=== PATIENT | male | born 1955 | race Hispanic/Latino ===

== ENCOUNTER → 2023-10-22 | Outpatient (CLI) | payer OTHER, MEDICARE ==
[~2023-10-22] MED LIST: IOHEXOL 350 MG/ML 100ML INFUS..BTL IV ONE
== END | disposition home or self-care (01) ==
LOC: RAH 10:31
PROVIDERS: ATTEND Student in an Organized Health Care Education/Training Program
DX: I25.10 Atherosclerotic heart disease of native coronary artery without angina pectoris (principal); R07.9 Chest pain, unspecified
CPT/HCPCS: 75574; Q9967

== ENCOUNTER 2023-11-29 05:33 | Day surgery (SDC) | payer OTHER, MEDICARE ==
[2023-11-25 08:35] LABS: BASOPHILS % (AUTO) 0.8 % (0.0-5.0); EOSINOPHILS # (AUTO) 0.16 K/uL (0.00-0.70); EOSINOPHILS % (AUTO) 1.3 % (0.0-8.0); HEMATOCRIT 47.1 % (42-54); IMMATURE GRANULOCYTE ABSOLUTE 0.05 K/uL (0-1); LYMPHOCYTES # (AUTO) 3.6 K/uL (1.0-4.8); LYMPHOCYTES % (AUTO) 29.1 % (21.0-51.0); MEAN CORPUSCULAR HEMOGLOBIN 28.6 pg (27.0-33.0); MEAN CORPUSCULAR HGB CONC 32.3 g/dL (32.0-36.0); MEAN CORPUSCULAR VOLUME 88.5 fL (79-99); MONOCYTES # (AUTO) 0.7 K/uL (0.1-1.0); MONOCYTES % (AUTO) 5.6 % (3.0-13.0); NEUTROPHILS # (AUTO) 7.8 K/uL (1.8-7.7); NEUTROPHILS % (AUTO) 62.8 % (40.0-77.0); PLATELET COUNT (AUTO) 242 K/uL (130-400); RED BLOOD CELL COUNT(AUTO) 5.32 MIL/uL (4.50-6.20); RED CELL DISTRIBUTION WIDTH 13.7 % (11.0-15.5); WHITE BLOOD COUNT (AUTO) 12.4 K/uL (4.8-10.8)
[2023-11-25 08:45] LABS: CREATININE 0.9 mg/dL (0.5-1.5); POTASSIUM 4.7 mmol/L (3.5-5.1)
[2023-11-25 08:47] LABS: INR 0.94 (0.85-1.15)
[2023-11-25 08:48] LABS: PARTIAL THROMBOPLASTIN TIME 27.6 SEC (26.3-35.5)
[2023-11-25 09:02] LABS: ADD UA MICROSCOPIC YES; APPEARANCE,URINE CLEAR (CLEAR); BILIRUBIN,URINE NEGATIVE (NEGATIVE); COLOR,URINE LIGHT-YELLOW (YELLOW); GLUCOSE, URINE (UA) >=1000 mg/dL (NEGATIVE); KETONES,URINE NEGATIVE (NEGATIVE); LEUKOCYTE ESTERASE ,URINE NEGATIVE Leu/uL (NEGATIVE); NITRATE,URINE NEGATIVE (NEGATIVE); OCCULT BLOOD,URINE NEGATIVE (NEGATIVE); PH,URINE 5.5 (5.0-8.0); PROTEIN,URINE NEGATIVE (NEGATIVE); UROBILINOGEN,URINE 0.2 mg/dL (0.2-1.0)
[2023-11-25 09:05] LABS: MUCUS,URINE RARE LPF (None Seen); RBC,URINE 0-1 /HPF (0-1); SQUAMOUS EPITHELIAL CELL,UR RARE /HPF (0-2); WBC,URINE 0-1 /HPF (0-1)
[2023-11-25 09:10] VITALS: BP 132/67; PULSE 59; RESP 18
[2023-11-25 09:13] LABS: B-TYPE NATRIURETIC PEPTIDE 57 pg/mL (0-100)
[~2023-11-29] VITALS: Ht 180.3 cm; Wt 116.5 kg
[2023-11-29] VITALS (13 sets, daily range): BP systolic 115–137; BP diastolic 56–71; PULSE 52–59; RESP 12–20
[~2023-11-29 05:33] MED LIST changes: +AEC81 PO; +AMLO-258 PO; +ATOR10 PO; +EMPA10TA PO; +INSU300I SQ; -IOHEXOL 350 MG/ML 100ML INFUS..BTL IV ONE; +VALS160T29 PO
[2023-11-29] MEDS: 0.9%NACL 1000ML 1,000 ML IV ONE (06:37)
[2023-11-29] MEDS ORDERED: FENTANYL CITRATE PF 50 MCG/1 ML 2ML VIAL ONE (07:12)
[2023-11-29] MEDS ORDERED: LIDOCAINE HCL 400MG/20ML VIAL ONE (07:12)
[2023-11-29] MEDS ORDERED: VERAPAMIL HCL 2.5 MG/ML VIAL ONE (07:13)
[2023-11-29] MEDS ORDERED: HEPARIN 10,000 UNIT/10ML (1,000 UNIT/ML) VIAL ONE (07:13)
[2023-11-29] MEDS ORDERED: IOHEXOL-350 50ML VIAL IV ONE (07:13)
[2023-11-29] MEDS ORDERED: IOHEXOL 350 MG/ML 100ML INFUS..BTL IV ONE (07:13)
[2023-11-29] MEDS ORDERED: MIDAZOLAM HCL 1 MG/ML 2ML VIAL ONE (07:13)
[2023-11-29] MEDS ORDERED: NITROGLYCERIN 50MG VIAL ONE (07:13)
[2023-11-29] MEDS: 0.9%NACL 1000ML 1,000 ML IV SCH (08:20)
[2023-11-29] MEDS ORDERED: GLUCAGON 1MG KIT 1 MG ML IM PRN (08:30)
[2023-11-29] MEDS ORDERED: DEXTROSE 50%-WATER 50 ML DISP.SYRIN IV PRN (08:30)
== END 2023-11-29 12:37 | disposition home or self-care (01) ==
LOC: DAH 05:33
PROVIDERS: ATTEND Student in an Organized Health Care Education/Training Program
DX: I25.119 Atherosclerotic heart disease of native coronary artery with unspecified angina pectoris (principal); I44.0 Atrioventricular block, first degree; I10 Essential (primary) hypertension; E78.5 Hyperlipidemia, unspecified; E11.9 Type 2 diabetes mellitus without complications; F17.200 Nicotine dependence, unspecified, uncomplicated; Z79.01 Long term (current) use of anticoagulants; Z79.899 Other long term (current) drug therapy; Z98.890 Other specified postprocedural states; Z79.82 Long term (current) use of aspirin
CPT/HCPCS: 80048; 83880; 85025; 85610; 85730; 81001; 36415; 71045; 93005; 93458; 82948 ×2; C1769; C1894; A4649; J3010; J3490 ×3; J7030; J1644 ×2; J2250; Q9967; A4215; A6251; A4222; A6260; A4221; A4663; A4216; A6206; A4606; Q9965; A4223 ×3; 96360; 96361; 99156; 99157

== ENCOUNTER 2024-06-23 05:35 | Day surgery (SDC) | payer OTHER, MEDICARE ==
[2024-06-21 09:34] VITALS: BP 117/65; PULSE 50; RESP 16; TEMP 97.5
[2024-06-21 09:40] LABS: BASOPHILS # (AUTO) 0.06 K/uL (0.00-0.20); BASOPHILS % (AUTO) 0.5 % (0.0-5.0); EOSINOPHILS # (AUTO) 0.21 K/uL (0.00-0.70); EOSINOPHILS % (AUTO) 1.9 % (0.0-8.0); HEMATOCRIT 46.7 % (42-54); IMMATURE GRANULOCYTE ABSOLUTE 0.07 K/uL (0-1); LYMPHOCYTES # (AUTO) 3.8 K/uL (1.0-4.8); LYMPHOCYTES % (AUTO) 34.2 % (21.0-51.0); MEAN CORPUSCULAR HEMOGLOBIN 28.2 pg (27.0-33.0); MEAN CORPUSCULAR HGB CONC 32.3 g/dL (32.0-36.0); MEAN CORPUSCULAR VOLUME 87.1 fL (79-99); MONOCYTES # (AUTO) 0.7 K/uL (0.1-1.0); MONOCYTES % (AUTO) 6.2 % (3.0-13.0); NEUTROPHILS # (AUTO) 6.3 K/uL (1.8-7.7); NEUTROPHILS % (AUTO) 56.6 % (40.0-77.0); PLATELET COUNT (AUTO) 293 K/uL (130-400); RED BLOOD CELL COUNT(AUTO) 5.36 MIL/uL (4.50-6.20); RED CELL DISTRIBUTION WIDTH 13.6 % (11.0-15.5); WHITE BLOOD COUNT (AUTO) 11.2 K/uL (4.8-10.8)
[2024-06-21 09:49] LABS: POTASSIUM 4.3 mmol/L (3.5-5.1)
[~2024-06-23] VITALS: Ht 177.8 cm; Wt 118.8 kg
[~2024-06-23 05:35] MED LIST changes: +APIX5TAB PO; -EMPA10TA PO; +EMPA25TA PO; +LEVO5TAB13 PO
[2024-06-23 06:03] LABS: BASOPHILS # (AUTO) 0.06 K/uL (0.00-0.20); BASOPHILS % (AUTO) 0.6 % (0.0-5.0); EOSINOPHILS % (AUTO) 3.1 % (0.0-8.0); HEMATOCRIT 40.9 % (42-54); IMMATURE GRANULOCYTE ABSOLUTE 0.04 K/uL (0-1); LYMPHOCYTES # (AUTO) 3.9 K/uL (1.0-4.8); LYMPHOCYTES % (AUTO) 39.8 % (21.0-51.0); MEAN CORPUSCULAR VOLUME 87.8 fL (79-99); MONOCYTES # (AUTO) 0.5 K/uL (0.1-1.0); MONOCYTES % (AUTO) 5.3 % (3.0-13.0); NEUTROPHILS % (AUTO) 50.8 % (40.0-77.0); PLATELET COUNT (AUTO) 239 K/uL (130-400); RED BLOOD CELL COUNT(AUTO) 4.66 MIL/uL (4.50-6.20); RED CELL DISTRIBUTION WIDTH 13.8 % (11.0-15.5); WHITE BLOOD COUNT (AUTO) 9.8 K/uL (4.8-10.8)
[2024-06-23 06:30] VITALS: BP 161/80; PULSE 57; RESP 17; TEMP 97.5
[2024-06-23] MEDS: 0.9%NACL 1000ML 1,000 ML IV ONE (07:45)
[2024-06-23] MEDS ORDERED: HEParin-NS 1,000 UNIT/500 ML 500 ML IV ONE (10:00)
[2024-06-23] MEDS ORDERED: LIDOCAINE HCL 400MG/20ML VIAL ONE (10:00)
[2024-06-23] MEDS ORDERED: BUPIvacaine/PF 0.25% 30ML VIAL IJ ONE (10:16)
[2024-06-23 11:05] VITALS: BP 142/69; PULSE 49; RESP 14; TEMP 98
[2024-06-23 11:20] VITALS: BP 142/69; PULSE 49; RESP 15
[2024-06-23 11:35] VITALS: BP 140/71; PULSE 58; RESP 16
== END 2024-06-23 11:40 | disposition home or self-care (01) ==
LOC: DAH 05:35
PROVIDERS: ATTEND Internal Medicine Cardiovascular Disease
DX: I48.0 Paroxysmal atrial fibrillation (principal); I25.10 Atherosclerotic heart disease of native coronary artery without angina pectoris; G47.33 Obstructive sleep apnea (adult) (pediatric); I10 Essential (primary) hypertension; E78.5 Hyperlipidemia, unspecified; E11.9 Type 2 diabetes mellitus without complications; Z79.01 Long term (current) use of anticoagulants; Z99.89 Dependence on other enabling machines and devices; Z79.899 Other long term (current) drug therapy; Z98.49 Cataract extraction status, unspecified eye
CPT/HCPCS: 80048; 85025 ×2; 36415 ×2; 33285; 82948; A4649; C1764; J3490; J7030; J0665; J1644; A4215; A4222; A4663; A4216; A4606; A4223 ×3; A4221

== ENCOUNTER 2024-11-13 05:44 | Day surgery (SDC) | payer OTHER, MEDICARE ==
[2024-11-10 14:58] LABS: BASOPHILS # (AUTO) 0.09 K/uL (0.00-0.20); BASOPHILS % (AUTO) 0.7 % (0.0-5.0); EOSINOPHILS # (AUTO) 0.54 K/uL (0.00-0.70); EOSINOPHILS % (AUTO) 4.5 % (0.0-8.0); HEMATOCRIT 46.4 % (42-54); IMMATURE GRANULOCYTE ABSOLUTE 0.05 K/uL (0-1); LYMPHOCYTES # (AUTO) 3.4 K/uL (1.0-4.8); LYMPHOCYTES % (AUTO) 28.1 % (21.0-51.0); MEAN CORPUSCULAR HEMOGLOBIN 28.7 pg (27.0-33.0); MEAN CORPUSCULAR HGB CONC 32.1 g/dL (32.0-36.0); MEAN CORPUSCULAR VOLUME 89.4 fL (79-99); MONOCYTES # (AUTO) 0.5 K/uL (0.1-1.0); MONOCYTES % (AUTO) 4.3 % (3.0-13.0); NEUTROPHILS # (AUTO) 7.4 K/uL (1.8-7.7); PLATELET COUNT (AUTO) 229 K/uL (130-400); RED BLOOD CELL COUNT(AUTO) 5.19 MIL/uL (4.50-6.20); RED CELL DISTRIBUTION WIDTH 13.8 % (11.0-15.5)
[2024-11-10 15:10] VITALS: BP 150/70; PULSE 50; RESP 20; TEMP 98
[2024-11-10 15:16] LABS: INR 1.03 (0.85-1.15); PROTHROMBIN TIME 10.9 SEC (9.6-11.6)
[2024-11-10 15:18] LABS: PARTIAL THROMBOPLASTIN TIME 27.6 SEC (26.3-35.5)
[2024-11-10 15:30] LABS: CREATININE 1.1 mg/dL (0.5-1.3); POTASSIUM 5.1 mmol/L (3.5-5.1)
--- NOTE | 2024-11-10 16:30 | NUR ---
REPORT REPORTED CBC AND BMP TO CHAITANYA SULLIVAN NP. RECEIVED ORDERS TO REPEAT BMP AND CBC AM OF PROCEDURE
--- NOTE | 2024-11-11 07:25 | EKG ---
[facility] Test Date: 2024-11-10 Test Time: 15:39:06 Pat Name: SUZI FRIAS Department: [facility] Room: [facility] Gender: M [employer] Tender: [id number] : 1955 Requested By: JAY ROB Order Number: [id number] Reading MD: Jean Marie Durham Measurements Intervals [place] Rate: 53 P: -74 ID: [id number] QRS: -10 QRSD: 107 T: 64 QT: 442 QTc: 414 Interpretive Statements Sinus or ectopic atrial rhythm Atrial premature complexes Sinus pause Compared to ECG 11/25/2023 08:25:02 Atrial premature complex(es) now present Sinus pause or arrest now present Ventricular premature complex(es) no longer present First degree AV block no longer present Intraventricular conduction delay no longer present Electronically Signed On 11-13-2024 16:00:27 RADIUS GRINDER by Jean Marie Durham Please click the below link to view image of tracing.
[~2024-11-13] VITALS: Ht 180.3 cm; Wt 119.7 kg
[2024-11-13] VITALS (7 sets, daily range): BP systolic 130–160; BP diastolic 60–86; PULSE 50–74; RESP 12–14; TEMP 98.4
[2024-11-13 07:02] LABS: BASOPHILS # (AUTO) 0.09 K/uL (0.00-0.20); BASOPHILS % (AUTO) 0.8 % (0.0-5.0); EOSINOPHILS # (AUTO) 0.51 K/uL (0.00-0.70); EOSINOPHILS % (AUTO) 4.8 % (0.0-8.0); HEMATOCRIT 46.3 % (42-54); IMMATURE GRANULOCYTE ABSOLUTE 0.09 K/uL (0-1); LYMPHOCYTES # (AUTO) 3.5 K/uL (1.0-4.8); LYMPHOCYTES % (AUTO) 32.6 % (21.0-51.0); MEAN CORPUSCULAR VOLUME 87.5 fL (79-99); MONOCYTES # (AUTO) 0.6 K/uL (0.1-1.0); MONOCYTES % (AUTO) 5.8 % (3.0-13.0); NEUTROPHILS # (AUTO) 5.9 K/uL (1.8-7.7); NEUTROPHILS % (AUTO) 55.2 % (40.0-77.0); PLATELET COUNT (AUTO) 254 K/uL (130-400); RED BLOOD CELL COUNT(AUTO) 5.29 MIL/uL (4.50-6.20); RED CELL DISTRIBUTION WIDTH 14.1 % (11.0-15.5); WHITE BLOOD COUNT (AUTO) 10.7 K/uL (4.8-10.8)
[2024-11-13 07:17] LABS: CREATININE 0.8 mg/dL (0.5-1.3); POTASSIUM 4.6 mmol/L (3.5-5.1)
[2024-11-13] MEDS: 0.9%NACL 1000ML 1,000 ML IV SCH (07:23)
[2024-11-13] MEDS ORDERED: BUPIvacaine/PF 0.25% 30ML VIAL IJ ONE (07:36)
[2024-11-13] MEDS ORDERED: ceFAZolin SODIUM 1 GM VIAL ONE (07:36)
[2024-11-13] MEDS ORDERED: LIDOCAINE HCL 1% MDV 50ML VIAL ONE (07:36)
[2024-11-13] MEDS ORDERED: MEPERIDINE-PF 50 MG/ML SYG ONE (07:38)
[2024-11-13] MEDS ORDERED: MIDAZOLAM HCL 1 MG/ML 2ML VIAL ONE (07:38)
[2024-11-13] MEDS ORDERED: IOHEXOL-350 50ML VIAL IV ONE (08:01)
[2024-11-13] MEDS ORDERED: TRAM50TA4 PO (09:18)
[2024-11-13] MEDS ORDERED: acetaMINOPHEN 500 MG TABLET PO PRN (09:30)
[2024-11-13] MEDS ORDERED: acetaMINOPHEN WITH coDEINE 1 TAB TAB PO PRN (09:30)
--- NOTE | 2024-11-13 15:59 | HMCIMG ---
CHEST 1VW HISTORY: Pacemaker placement COMPARISON: 11/25/2023 FINDINGS: A frontal projection of the chest was obtained. Mild bilateral pulmonary infiltrates are seen may be related to mild pulmonary vascular congestion with possible superimposed pneumonitis. The heart is borderline enlarged. Pacemaker is seen entering from the left. No evidence of aortic calcification is seen. IMPRESSION: 1. Mild bilateral pulmonary infiltrates are seen may be related to mild pulmonary vascular congestion with possible superimposed pneumonitis.
== END 2024-11-13 12:40 | disposition home or self-care (01) ==
LOC: DAH 05:44
PROVIDERS: ATTEND Internal Medicine Cardiovascular Disease
DX: I49.5 Sick sinus syndrome (principal); I48.0 Paroxysmal atrial fibrillation; I10 Essential (primary) hypertension; E78.5 Hyperlipidemia, unspecified; Z98.49 Cataract extraction status, unspecified eye; Z79.899 Other long term (current) drug therapy
CPT/HCPCS: 80048 ×2; 85025 ×2; 85610; 85730; 36415 ×2; 93005; 33286; 33208; 82948; 71045; A4223 ×3; A4649; C1785; C1898 ×2; J0690; J7030; J0665; J2250; J2175; J3490; Q9967; A4615; A4215; A4657; A4222; A4221; A4663; A4216; A4606; 99152; 99156; 99157; G0500